=== PATIENT | female | born 1970 | race Caucasian/White ===

== ENCOUNTER 2017-01-03 22:20 | Emergency (ER) | payer MEDICAID ==
[~2017-01-03] VITALS: Ht 172.7 cm; Wt 65.0 kg
[~2017-01-03 22:20] MED LIST: CIPR100T4 PO; LORT5TAB PO; PROZ40CA PO; SERO400T3 OR
[2017-01-03 22:21] VITALS: BP 185/105; PULSE 114; RESP 16; TEMP 98.8; O2SAT 97
--- NOTE | 2017-01-03 23:10 | PD ---
HPI Chief Complaint: Psychiatric Symptoms Time Seen by Provider: 22:44 Travel History International Travel<30 days: No Contact w/Intl Traveler<30days: No Traveled to known affect area: No History of Present Illness HPI Patient is a 86-year-old female presenting to the emergency department for help obtaining resources for counseling. Patient reports a history of manic depression and has been on Latuda and Valium, she states that she takes it most of the time. Her insurance is no longer accepted at her psychiatrist's office and she has been unable to afford the $100 co-pay. She went to [facility] ([facility] the past but returned there. She denies any suicidal or homicidal ideations, she denies any hallucinations. She has no physical complaints at this time. PFSH Past Medical History Bipolar Disorder: Yes Depression: Yes Diminished Hearing: No Migraines: Yes ?: Not : 6 Para: 3 Miscarriage: 2 : 1 Tubal Ligation: Yes Past Surgical History Surgical History: No Previous Surgery Social History Alcohol Use: No Tobacco Use: Yes (1 PPD) Substance Use: Yes (POT) Allergies-Medications (Allergen,Severity, Reaction): Coded Allergies: iodine (Unverified Allergy, Severe, RASH, THROAT SWELLING, 01/03/17) RASH potassium iodide (Unverified Allergy, Severe, RASH, THROAT SWELLING, ) RASH Reported Meds & Prescriptions Reported Meds & Active Scripts Active Reported Prozac (Fluoxetine HCl) 40 Mg Cap 40 Mg PO DAILY Seroquel Xr (Quetiapine Fumarate) 400 Mg Tab 800 Mg OR DAILY Lortab 5/500 (Acetaminophen/Hydrocodone Bitart) 5 Mg/500 Mg Tab 1 Tab PO FOR PAIN Cipro (Ciprofloxacin) 100 Mg Tab 0 PO BID UNKNOWN DOSE Review of Systems Except as stated in HPI: all other systems reviewed are Neg Psychiatric: Positive: Anxiety, Depression, No: Suicidal Ideations, Disorder of Thought, Substance Abuse, Homicidal Ideation Physical Exam Narrative GENERAL: Well-developed, well nourished, well kept alert female. Resting comfortably in no acute distress. SKIN: Warm and dry. HEAD: Atraumatic. Normocephalic. EYES: Pupils equal and round. No scleral icterus. No injection or drainage. ENT: No nasal bleeding or discharge. Mucous membranes pink and moist. NECK: Trachea midline. No JVD. CARDIOVASCULAR: Regular rate and rhythm. RESPIRATORY: No accessory muscle use. Clear to auscultation. Breath sounds equal bilaterally. GASTROINTESTINAL: Abdomen soft, non-tender, nondistended. Hepatic and splenic margins not palpable. MUSCULOSKELETAL: Extremities without clubbing, cyanosis, or edema. No obvious deformities. NEUROLOGICAL: Awake and alert. No obvious cranial nerve deficits. Motor grossly within normal limits. Five out of 5 muscle strength in the arms and legs. Normal speech. PSYCHIATRIC: Appropriate mood and affect; insight and judgment normal. Data Data Last Documented VS Vital Signs Date Time Temp Pulse Resp B/P (MAP) Pulse Ox O2 Delivery O2 Flow Rate FiO2 01/03/17 23:23 98.6 95 14 138/92 (107) 98 Room Air MDM Medical Decision Making Medical Screen Exam Complete: Yes Emergency Medical Condition: Yes Interpretation(s) Vital Signs Date Time Temp Pulse Resp B/P (MAP) Pulse Ox O2 Delivery O2 Flow Rate FiO2 01/03/17 22:21 98.8 114 16 185/105 (131) 97 Room Air Differential Diagnosis Depression versus anxiety versus noncompliance versus other Narrative Course Patient is a 46-year-old female that presented to emergency department history of depression and anxiety, she is requesting help to find a new provider in which to follow-up with. Patient is alert, well kept, acting appropriately. She is denying any homicidal or suicidal ideations. She does report like stressors in regards to where she is living but states she can't change that at this time. She does not feel threatened where she is living. At this time patient provided with a list of resources that was obtained from psych. Patient was encouraged return to emergency department she had any new or worsening symptoms. Patient verbalized understanding of instructions. Patient is stable for discharge. Arrival patient was tachycardic and hypertensive, vital signs are reassessed and have normalized. Patient is stable for discharge. Diagnosis Primary Impression: Anxiety and depression Referrals: [facility] Patient Instructions: Anxiety (ED), Depression (ED), General Instructions Additional Instructions: Continue previously prescribed medications, take daily as directed for best results Follow-up with a psychiatrist and counselor Return to emergency department immediately for any new or worsening symptoms Med/Other Pt SpecificInfo: No Change to Meds Disposition: 01 DISCHARGE HOME Condition: Stable Edna Hough Jan 03, 2017 23:10
[2017-01-03 23:23] VITALS: BP 138/92; PULSE 95; RESP 14; TEMP 98.6; O2SAT 98
== END 2017-01-03 23:49 | disposition home or self-care (01) ==
LOC: NEPD 22:20
DX: F41.9 Anxiety disorder, unspecified (principal); F17.210 Nicotine dependence, cigarettes, uncomplicated; F12.90 Cannabis use, unspecified, uncomplicated
CPT/HCPCS: 99283